=== PATIENT | female | born 1950 | race Caucasian/White ===

== ENCOUNTER 2022-11-29 15:05 | Emergency (ER) | payer MEDICARE, BC ==
[2022-11-29] MEDS ORDERED: Silver Sulfadiazine 1% Crm 400 GM Jar TOP SCH (16:00)
[2022-11-29] MEDS ORDERED: Silver Sulfadiazine 1% Crm 400 GM Jar ONE (16:00)
== END 2022-11-29 16:15 | disposition home or self-care (01) ==
LOC: LB.ED 15:05
DX: T21.24XA Burn of second degree of lower back, initial encounter (principal); E11.9 Type 2 diabetes mellitus without complications; X16.XXXA Contact with hot heating appliances, radiators and pipes, initial encounter
CPT/HCPCS: 16020; 99283; A9270